=== PATIENT | female | born 2000 | race Hispanic/Latino ===

== ENCOUNTER 2020-03-30 10:46 | Emergency (ER) | payer SELFPAY ==
[2020-03-30 12:01] LABS: Urine Bilirubin NEGATIVE (NEG); Urine Blood 3+ (NEG); Urine Glucose NEGATIVE (NEG); Urine Protein 1+ (NEG); Urine Urobilinogen 0.2 mg/dL (0.2-1.0)
[2020-03-30 12:02] LABS: Urine Appearance CLOUDY; Urine Color RED
[2020-03-30 12:03] LABS: Urine Microscopic Reflex ORDER UMIC
[2020-03-30 12:27] LABS: Urine Bacteria 20-50 /HPF (<20); Urine RBC LOADED /HPF (NONE SEEN)
[2020-03-30 12:28] LABS: Urine Culture Reflex Order NOT NEEDED
--- NOTE | 2020-03-30 12:38 | EDPHYS ---
Physician Documentation [facility] Name: Darling Shannon Age: 19 yrs Sex: Female : 2000 Arrival Date: 03/30/2020 Time: 10:53 Bed 17 Private MD: ED Physician Gurjit Estevez HPI: 03/30 11:46 This 19 yrs old Female presents to ER via Ambulatory with complaints of rn Urinary Problem. 11:46 The patient presents with urinary symptoms, hematuria. Onset: The symptoms/episode rn began/occurred 4 day(s) ago. Modifying factors: The symptoms are alleviated by nothing, the symptoms are aggravated by urinating. Severity of symptoms: At their worst the symptoms were mild, in the emergency department the symptoms are unchanged. The patient has not experienced similar symptoms in the past. Reports 4 days of hematuria, no clots, denies flank or abd pain, no trauma. Has never happened before. Does report dysuria. Denies vaginal complaints or concern for STI. No fever. . Historical: - Allergies: 11:07 No Known Allergies; hb - Home Meds: 11:07 None [Active]; hb - PMHx: 11:07 None; hb - PSHx: 11:07 None; hb - Immunization history:: Adult Immunizations up to date. - Social history:: Smoking status: Patient denies any tobacco usage or history of. - Family history:: not pertinent. - Hospitalizations: : No recent hospitalization is reported. ROS: 11:46 Constitutional: Negative for fever, chills, and weight loss, Eyes: Negative for injury, rn pain, redness, and discharge, Neck: Negative for injury, pain, and swelling, Cardiovascular: Negative for chest pain, palpitations, and edema, Respiratory: Negative for shortness of breath, cough, wheezing, and pleuritic chest pain, Abdomen/GI: Negative for abdominal pain, nausea, vomiting, diarrhea, and constipation, Back: Negative for injury and pain, : + hematuria MS/Extremity: Negative for injury and deformity, Skin: Negative for injury, rash, and discoloration, Neuro: Negative for headache, weakness, numbness, tingling, and seizure. Exam: 11:46 Constitutional: This is a well developed, well nourished patient who is awake, alert, rn and in no acute distress. Head/Face: Normocephalic, atraumatic. Cardiovascular: Regular rate and rhythm. No pulse deficits. Respiratory: Speaking full sentences, unlabored. Abdomen/GI: soft, non-tender Back: No costovertebral tenderness Skin: Warm, dry Neuro: Awake and alert, GCS 15 Vital Signs: 11:05 BP 119 / 68; Pulse 84; Resp 16; Temp 97.9; Pulse Ox 100% ; Weight 92.99 kg; Height 5 hb ft. 6 in. (167.64 cm); Pain 0/10; 11:05 Body Mass Index 33.09 (92.99 kg, 167.64 cm) hb MDM: 11:16 Patient medically screened. rn 12:36 Differential diagnosis: malignancy, urinary tract infection. Differential diagnosis: rn bladder polyp. Data reviewed: vital signs, nurses notes. Counseling: I had a detailed discussion with the patient and/or guardian regarding: the historical points, exam findings, and any diagnostic results supporting the discharge/admit diagnosis, lab results, the need for outpatient follow up, to return to the emergency department if symptoms worsen or persist or if there are any questions or concerns that arise at home. Special discussion: I discussed with the patient/guardian in detail that at this point there is no indication for admission to the hospital. It is understood, however, that if the symptoms persist or worsen the patient needs to return immediately for re-evaluation. Based on the history and exam findings, there is no indication for further emergent testing or inpatient evaluation. I discussed with the patient/guardian the need to see the urologist for further evaluation of the symptoms. ED course: UA and micro consistent with UTI, no pain to indicate stone, vitals normal, no medical problems, will dc home with abx and told her to f/u with urology, especially if symptoms do not improve after abx, for cystoscope. . 03/30 11:22 Order name: Urine Culture rn 03/30 11:38 Order name: UA; Complete Time: 12:32 eb 03/30 12:05 Order name: Urine Microscopic Only; Complete Time: 12:32 EDMS Administered Medications: No medications were administered Disposition: 03/30/20 12:38 Discharged to Home. Impression: Hematuria, unspecified. - Condition is Stable. - Discharge Instructions: Hematuria, Adult, Urinary Tract Infection, Adult. - Prescriptions for Cipro 500 mg Oral Tablet - take 1 tablet by ORAL route every 12 hours for 10 days; 20 tablet. - Medication Reconciliation Form, Thank You Letter, Antibiotic Education, Prescription Opioid Use form. - Follow up: Richelle Cortes MD; When: As needed; Reason: Recheck today's complaints, Re-evaluation by your physician. - Problem is new. - Symptoms are unchanged. Signatures: Dispatcher [employer] [facility] Gurjit Estevez MD MD rn Baxter, Heather, RN RN hb Corrections: (The following items were deleted from the chart) 11:38 11:22 Urine Dipstick-Ancillary ordered. morales worrell 12:04 11:23 UA MICROSCOPIC+U.LAB.BRZ ordered. [facility] EDAR 13:12 12:38 03/30/2020 12:38 Discharged to Home. Impression: Hematuria, unspecified. hb Condition is Stable. Forms are Medication Reconciliation Form, Thank You Letter, Antibiotic Education, Prescription Opioid Use. Follow up: Richelle Cortes; When: As needed; Reason: Recheck today's complaints, Re-evaluation by your physician. Problem is new. Symptoms are unchanged. rn
--- NOTE | 2020-03-30 12:38 | ER ---
Nurse's Notes [facility] Name: Darling Shannon Age: 19 yrs Sex: Female : 2000 Arrival Date: 03/30/2020 Time: 10:53 Bed 17 Private MD: Diagnosis: Hematuria, unspecified Presentation: 03/30 11:05 Chief complaint: Holly blood in urine x 4 days. Vomit x 1 yesterday. Denies pain/fever. hb Coronavirus screen: Ebola Screen: No symptoms or risks identified at this time. Initial Sepsis Screen: Does the patient meet any 2 criteria? No. Patient's initial sepsis screen is negative. Does the patient have a suspected source of infection? No. Patient's initial sepsis screen is negative. Risk Assessment: Do you want to hurt yourself or someone else? Patient reports no desire to harm self or others. Onset of symptoms was March 26, 2020. 11:05 Method Of Arrival: Ambulatory hb 11:05 Acuity: FRANCESCA 3 hb Historical: - Allergies: 11:07 No Known Allergies; hb - Home Meds: 11:07 None [Active]; hb - PMHx: 11:07 None; hb - PSHx: 11:07 None; hb - Immunization history:: Adult Immunizations up to date. - Social history:: Smoking status: Patient denies any tobacco usage or history of. - Family history:: not pertinent. - Hospitalizations: : No recent hospitalization is reported. Assessment: 11:20 General: Appears in no apparent distress. Behavior is calm, cooperative. Pain: ah Complains of pain in right upper quadrant and left upper quadrant Pain does not radiate. Neuro: Level of Consciousness is awake, Oriented to person, place, time, situation. Cardiovascular: Capillary refill < 3 seconds Patient's skin is warm and dry. Respiratory: Airway is patent Respiratory effort is even, unlabored, Respiratory pattern is regular, symmetrical. GI: Bowel sounds present X 4 quads. Abd is soft and non tender X 4 quads. Reports vomiting, x1 yesterday. : Urine is holly blood, Reports urinary frequency, feels like she is unable to empty bladder completely Denies trauma. Derm: Skin is intact, is healthy with good turgor. Musculoskeletal: Reports recently starting new workout regimen and she is extremely sore. Vital Signs: 11:05 BP 119 / 68; Pulse 84; Resp 16; Temp 97.9; Pulse Ox 100% ; Weight 92.99 kg; Height 5 hb ft. 6 in. (167.64 cm); Pain 0/10; 11:05 Body Mass Index 33.09 (92.99 kg, 167.64 cm) hb ED Course: 10:53 Patient arrived in ED. fj 11:06 Triage completed. hb 11:07 Arm band placed on. 11:16 Gurjit Estevez MD is Attending Physician. rn 11:34 Raven Paul, RN is Primary Nurse. 12:38 Richelle Cortes MD is Referral Physician. rn Administered Medications: No medications were administered Outcome: 12:38 Discharge ordered by . rn 13:12 Patient left the ED. hb Signatures: Gurjit Estevez MD MD rn Baxter, Heather, RN RN hb James, [facility] Raven Paul RN RN
[2020-03-30 13:23] VITALS: BP 119/68; TEMP 97.9; O2SAT 100
== END 2020-03-30 13:12 | disposition home or self-care (01) ==
LOC: ER 10:46
DX: R31.9 Hematuria, unspecified (principal)
CPT/HCPCS: 81003; 81015; 87086; 87088; 99281